=== PATIENT | female | born 1960 | race Caucasian/White ===

== ENCOUNTER 2021-06-10 08:57 | Emergency (ER) | payer SELFPAY ==
[~2021-06-10] VITALS: Ht 154.9 cm; Wt 91.2 kg
[2021-06-10 09:03] VITALS: BP 131/50
--- NOTE | 2021-06-10 09:07 | NUR ---
Patient ambulated with steady gait to bed 4.
[2021-06-10] MEDS ORDERED: ONDANSETRON 4 MG ODT PO ONE (09:15)
--- NOTE | 2021-06-10 09:15 | NUR ---
PT AMBULATED TO BED 4. PT WAS BIB SELF WITH CC LEFT SIDE ABD PAIN RADIATING TO THE BACK. PT STATES PAIN AT A SCALE OF 8/10. PT SAYS THE PAIN IS SHARP IN CHARACTERISTIC. ABD PAIN HAS BEEN OCCURING SINCE THREE DAYS AGO AND GRADUALLY WORSENED. SHE ALSO STATES THAT THERE WAS AN EPISODE OF EMESIS PRIOR TO ARRIVAL OF THE ED. DENIES ANY PMH. DENIES ALLERGIES TO MEDICATIONS. PT IS STABLE.
[2021-06-10] MEDS ORDERED: KETOROLAC 60 MG/2 ML VIAL IM ONE (10:15)
[2021-06-10] MEDS ORDERED: OMEP40EC24 PO (10:29)
[2021-06-10] MEDS ORDERED: ONDA8TAB87 PO (10:29)
[2021-06-10] MEDS ORDERED: IBUP-2213 PO (10:29)
--- NOTE | 2021-06-10 10:42 | NUR ---
PT STATES PAIN IN ABD HAS IMPROVED AT A SCALE OF 4/10. PT STATES PAIN TOLERABLE.
[2021-06-10 10:44] VITALS: BP 131/50
== END 2021-06-10 10:40 | disposition home or self-care (01) ==
LOC: MED 08:57
DX: R10.12 Left upper quadrant pain (principal); R11.2 Nausea with vomiting, unspecified
CPT/HCPCS: 81002; 96372; 99283; J1885; Q0162